=== PATIENT | male | born 1955 | race Two or more races ===

== ENCOUNTER 2022-05-29 06:17 | Day surgery (SDC) | payer MEDICAID, OTHER ==
[~2022-05-29] VITALS: Ht 175.3 cm; Wt 95.3 kg
[~2022-05-29 06:17] MED LIST: KEP500T PO; LEVE100012 PO; MEMA1TAB5 PO; PHE100C PO; SERT25TA14 PO; SIMV10TA84 PO; TOPI1CAP14 PO
[2022-05-29] MEDS ORDERED: LIDOCAINE W/ EPINEPHRINE 2% INJ 20ML VIAL ONE (06:36)
[2022-05-29] MEDS ORDERED: BUPIVACAINE 0.25% INJ 50ML VIAL ONE (06:37)
[2022-05-29] MEDS ORDERED: IOHEXOL 300 MG/ML 100ML BOTTLE IJ ONE (06:37)
[2022-05-29] MEDS ORDERED: ceFAZolin 1GM/50ML 100 ML IV ONE (07:03)
[2022-05-29] MEDS ORDERED: ceFAZolin 1GM/50ML 50 ML IV ONE (07:07)
[2022-05-29] MEDS ORDERED: ONDANSETRON HCL 4 MG/2 ML VIAL ONE (07:13)
[2022-05-29] MEDS ORDERED: ceFAZolin 1GM VL ONE (07:13)
[2022-05-29] MEDS ORDERED: KETOROLAC TROMETH 30 MG/ML 1ML VIAL ONE (07:13)
[2022-05-29] MEDS ORDERED: PROPOFOL 10 MG/ML 20 ML IV ONE (07:13)
[2022-05-29] MEDS ORDERED: LIDOCAINE 1% (LOCAL ANESTH.) PF 5ml SDV ONE (07:13)
[2022-05-29] MEDS ORDERED: GLYCOPYRROLATE 0.2 MG/ML 1ML VIAL ONE (07:13)
[2022-05-29] MEDS ORDERED: SODIUM CHLORIDE LOCK 10 ML ONE (07:51)
[2022-05-29] MEDS ORDERED: PHENYLEPHRINE HCL 10 MG/ML VL ONE (07:51)
[2022-05-29] MEDS ORDERED: ePHEDrine SULFATE 50 MG/ML AMP ONE (08:07)
[2022-05-29 09:20] VITALS: BP 116/55
== END 2022-05-29 09:27 | disposition home or self-care (01) ==
LOC: SUR 06:17
PROVIDERS: ATTEND Anesthesiology Pain Medicine
DX: S32.030A Wedge compression fracture of third lumbar vertebra, initial encounter for closed fracture (principal); S32.040A Wedge compression fracture of fourth lumbar vertebra, initial encounter for closed fracture; X58.XXXA Exposure to other specified factors, initial encounter; Y93.89 Activity, other specified; Y92.89 Other specified places as the place of occurrence of the external cause; Y99.8 Other external cause status; M54.59 Other low back pain; Z20.822 Contact with and (suspected) exposure to COVID-19
CPT/HCPCS: 22514; 22515; 72100; 76000; C1713; J0690; J2370; J2405; J2704; J3490; Q9967; U0003; J1885